=== PATIENT | female | born 1970 | race African-American/Black ===

== ENCOUNTER 2018-11-14 19:03 | Emergency (ER) | payer MEDICAID ==
[~2018-11-14] VITALS: Ht 152.4 cm; Wt 64.0 kg
[2018-11-14 22:40] VITALS: BP 120/80
== END 2018-11-14 22:41 | disposition home or self-care (01) ==
LOC: ER 19:03
DX: S82.832A Other fracture of upper and lower end of left fibula, initial encounter for closed fracture (principal); W50.2XXA Accidental twist by another person, initial encounter; Y93.01 Activity, walking, marching and hiking; Y92.89 Other specified places as the place of occurrence of the external cause; Y99.8 Other external cause status
CPT/HCPCS: 29515; 73610; 99283